=== PATIENT | female | born 1985 | race Caucasian/White ===

== ENCOUNTER 2019-02-07 11:02 | Emergency (ER) | payer BC, OTHER ==
[2019-02-07 11:33] VITALS: BP 125/85; PULSE 104
[2019-02-07] MEDS ORDERED: HYDROmorphone 1 MG/ML Syringe IM ONE (11:56)
[2019-02-07 12:33] LABS: ANION GAP 10.8; CHLORIDE,CL 107 mmol/L (101-111); SODIUM,NA 138 mmol/L (135-145)
[2019-02-07] MEDS ORDERED: Iopamidol 612 MG/ML 100 ML Bottle IVPUSH ONE (13:19)
[2019-02-07] MEDS ORDERED: Ketorolac 30 MG/ML SDV IVPUSH ONE (13:19)
[2019-02-07] MEDS: Sodium Chloride 0.9% 10 ML Syringe FLUSH PRN ×3 (13:40→16:04)
[2019-02-07] MEDS ORDERED: HYDROmorphone 1 MG/ML Syringe IVPUSH ONE (14:34)
[2019-02-07] MEDS ORDERED: Ondansetron 4 MG/2 ML SDV IV ONE (15:53)
--- NOTE | 2019-02-07 15:56 | EDM.PDOC ---
Scribed by Yusra Chun 02/07/19 1203 for Shaila Durant MD ED HPI GENERAL MEDICAL PROBLEM - General Chief Complaint: Abdominal Pain Stated Complaint: ABDOMINAL PAIN Time Seen by Provider: 02/07/19 11:39 Source of Information: Reports: Patient, RN, RN Notes Reviewed History Limitations: Reports: No Limitations - History of Present Illness INITIAL COMMENTS - FREE TEXT/NARRATIVE: Patient presents to ER with complaint of left and right lower quadrant abdominal pain started before going to bed. Rates 10/10, sharp, stabbing, shooting. Patient has lower back pain chronically, This pain radiates to back. At 0400HRS, pain intensified. Took Midol and Cyclobenzaprine at 0700HRS. Last stool was this morning, but was hard and small, last normal BM was 2 days ago. Patient delivered infant via 6 months ago, had tubal ligation at that time. Patient has not has menses since delivery, she is not . States pain is worse than menstrual cramps. No fever, chills or nausea. 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: Other Medication(s) Lower Abdomen Pain Score (Numeric/FACES): 10 - Related Data Allergies Allergy/AdvReac Type Severity Reaction Status Date / Time No Known Allergies Allergy Verified 02/07/19 12:04 Home Meds: Home Meds buPROPion [Wellbutrin] 50 mg PO DAILY 06/05/15 [History] Past Medical History HEENT History: Reports: Impaired Vision YARN SALVAGER History: Reports: , Other (See Below) (Ovarian cysts) LMP (Approximate): Other (See Below) (6 months , no menses since delivery as of 02/07/19.) Endocrine/Metabolic History: Reports: Obesity/BMI 30+ - Past Surgical History Female Surgical History: Reports: Section Social & Family History - Family History Family Medical History: Noncontributory - Living Situation & Occupation Living situation: Reports: , with Family ED ROS GENERAL - Review of Systems Review Of Systems: ROS reveals no pertinent complaints other than HPI. ED EXAM, GI/ABD - Physical Exam Exam: See Below Exam Limited By: No Limitations General Appearance: Alert, No Apparent Distress, Obese Eyes: Left: Normal Appearance (Rt conj. injection), Bilateral: EOMI Nose: Normal Inspection Throat/Mouth: Normal Inspection, Normal Lips, Normal Teeth, Normal Gums, Normal Oropharynx, Normal Voice, No Airway Compromise Head: Atraumatic, Normocephalic Neck: Normal Inspection, Supple, Non-Tender, Full Range of Motion Respiratory/Chest: No Respiratory Distress, Lungs Clear, Normal Breath Sounds, No Accessory Muscle Use, Chest Non-Tender Cardiovascular: Regular Rate, Rhythm, Tachycardia GI/Abdominal Exam: Normal Bowel Sounds, Soft, Non-Tender, No Distention. No: Guarding, Rigid, Rebound (Female) Exam: Deferred Rectal (Female) Exam: Deferred Back Exam: Normal Inspection Extremities: Normal Inspection Neurological: Alert, Oriented, CN II-XII Intact, Normal Cognition, No Motor/ Sensory Deficits Psychiatric: Normal Mood Skin Exam: Warm, Dry, Intact, Normal Color, No Rash Course - Vital Signs Last Recorded V/S: Last Vital Signs Temp 97.5 F 02/07/19 11:32 Pulse 104 H 02/07/19 11:32 Resp 20 02/07/19 11:32 BP 125/85 02/07/19 11:32 Pulse Ox 98 02/07/19 11:32 - Orders/Labs/Meds Orders: Active Orders 24 hr Category Date Time Status Peripheral IV Care [RC] . DIRECTED Care 02/07/19 13:20 Active Abdomen 2V AP Upright Decub [CR] Urgent Exams 02/07/19 11:51 Taken Abdomen Pelvis w Cont [CT] Urgent Exams 02/07/19 13:19 Taken Ondansetron [Zofran] Med 02/07/19 15:53 Once 4 mg IV ONETIME ONE Sodium Chloride 0.9% [Saline Flush] Med 02/07/19 13:19 Active 10 ml FLUSH ASDIRECTED PRN Peripheral IV Insertion Adult [OM.PC] Stat Oth 02/07/19 13:19 Ordered Medication Orders Sodium Chloride (Saline Flush) 10 ml FLUSH ASDIRECTED PRN PRN Reason: Keep Vein Open Last Admin: 02/07/19 14:52 Dose: 10 ml Admin: 02/07/19 13:40 Dose: 10 ml Labs: Laboratory Tests 02/07/19 02/07/1919 Range/Units 11:21 11:21 12:02 WBC 11.2 H (5.0-10.0) 10^3/uL RBC 4.75 (4.2-5.4) 10^6/uL Hgb 13.7 (12.0-16.0) g/dL Hct 40.0 (37.0-47.0) % MCV 84.2 (80-100) fL MCH 28.8 (27.0-34.0) pg MCHC 34.3 (33.0-35.0) g/dL Plt Count 331 (150-450) 10^3/uL Neut % (Auto) 68.4 (42.2-75.2) % Lymph % (Auto) 18.6 L (20.5-50.1) % Ulster % (Auto) 8.4 H (2-8) % Eos % (Auto) 3.9 H (1.0-3.0) % Baso % (Auto) 0.7 (0.0-1.0) % Sodium (135-145) mmol/L Potassium (3.6-5.0) mmol/L Chloride (101-111) mmol/L Carbon Dioxide (21.0-31.0) mmol/L Anion Gap BUN (7-18) mg/dL Creatinine (0.6-1.3) mg/dL Est Cr Clr Drug Dosing mL/min Estimated GFR (MDRD) BUN/Creatinine Ratio Glucose (74-105) mg/dL Calcium (8.4-10.2) mg/dl Total Bilirubin (0.2-1.0) mg/dL AST (10-42) IU/L ALT (10-60) IU/L Alkaline Phosphatase (42-121) IU/L Total Protein (6.7-8.2) g/dl Albumin (3.2-5.5) g/dl Globulin Albumin/Globulin Ratio Amylase (28-100) U/L Lipase (22-51) U/L Urine Color Light yellow (YELLOW) Urine Appearance Clear (CLEAR) Urine pH 7.0 (5.0-9.0) Ur Specific Baggs 1.015 (1.005-1.030) Urine Protein Negative (NEGATIVE) Urine Glucose (UA) Negative (NEGATIVE) Urine Ketones Negative (NEGATIVE) Urine Occult Blood Negative (NEGATIVE) Urine Nitrite Negative (NEGATIVE) Urine Bilirubin Negative (NEGATIVE) Urine Urobilinogen 0.2 (0.2-1.0) mg/dL Ur Leukocyte Esterase Negative (NEGATIVE) Urine HCG, Qual Negative 02/07/19 Range/Units 12:02 WBC (5.0-10.0) 10^3/uL RBC (4.2-5.4) 10^6/uL Hgb (12.0-16.0) g/dL Hct (37.0-47.0) % MCV (80-100) fL MCH (27.0-34.0) pg MCHC (33.0-35.0) g/dL Plt Count (150-450) 10^3/uL Neut % (Auto) (42.2-75.2) % Lymph % (Auto) (20.5-50.1) % Ulster % (Auto) (2-8) % Eos % (Auto) (1.0-3.0) % Baso % (Auto) (0.0-1.0) % Sodium 138 (135-145) mmol/L Potassium 3.8 (3.6-5.0) mmol/L Chloride 107 (101-111) mmol/L Carbon Dioxide 24.0 (21.0-31.0) mmol/L Anion Gap 10.8 BUN 14 (7-18) mg/dL Creatinine 0.8 (0.6-1.3) mg/dL Est Cr Clr Drug Dosing 84.76 mL/min Estimated GFR (MDRD) > 60 BUN/Creatinine Ratio 17.50 Glucose 113 H (74-105) mg/dL Calcium 8.6 (8.4-10.2) mg/dl Total Bilirubin 0.5 (0.2-1.0) mg/dL AST 18 (10-42) IU/L ALT 15 (10-60) IU/L Alkaline Phosphatase 69 (42-121) IU/L Total Protein 6.7 (6.7-8.2) g/dl Albumin 3.7 (3.2-5.5) g/dl Globulin 3.0 Albumin/Globulin Ratio 1.23 Amylase 39 (28-100) U/L Lipase 32 (22-51) U/L Urine Color (YELLOW) Urine Appearance (CLEAR) Urine pH (5.0-9.0) Ur Specific Baggs (1.005-1.030) Urine Protein (NEGATIVE) Urine Glucose (UA) (NEGATIVE) Urine Ketones (NEGATIVE) Urine Occult Blood (NEGATIVE) Urine Nitrite (NEGATIVE) Urine Bilirubin (NEGATIVE) Urine Urobilinogen (0.2-1.0) mg/dL Ur Leukocyte Esterase (NEGATIVE) Urine HCG, Qual Meds: Medications Generic Name Dose Route Start Last Admin Trade Name Freq PRN Reason Stop Dose Admin Sodium Chloride 10 ml 02/07/19 13:19 02/07/19 14:52 Saline Flush FLUSH 10 ml ASDIRECTED PRN Administration Keep Vein Open Discontinued Medications Generic Name Dose Route Start Last Admin Trade Name Freq PRN Reason Stop Dose Admin Hydromorphone HCl 1 mg 02/07/19 11:56 02/07/19 12:12 Dilaudid IM 02/07/19 11:57 1 mg ONETIME ONE Administration Hydromorphone HCl 1 mg 02/07/19 14:34 02/07/19 14:53 Dilaudid IVPUSH 02/07/19 14:35 1 mg ONETIME ONE Administration Iopamidol 100 ml 02/07/19 13:19 02/07/19 13:32 Isovue-300 (61%) IVPUSH 02/07/19 13:20 100 ml ONETIME ONE Administration Ketorolac Tromethamine 30 mg 02/07/19 13:19 02/07/19 13:39 Toradol IVPUSH 02/07/19 13:20 30 mg ONETIME ONE Administration - Radiology Interpretation Free Text/Narrative:: [facility] Final Radiology Report Call: [phone] assistance Online chat: [email or web address] Name: FELIPE VEGA Age: 33Years F Date: 02/07/2019 SSN: -- : 1985 Study: XR ABDOMEN COMPLETE W DECUBITUS &/OR ERECT VIEWS Requesting Physician: SHAILA DURANT Images: 3 Addl Studies: Provided Clinical History: Contrast: Contrast Medium: Contrast Amount: Contrast Method: CONFIDENTIALITY STATEMENT This report is intended only for use by the referring physician, and only in accordance with law. If you received this in error, call [phone]. Page 1 of 1 PROCEDURE INFORMATION: Exam: XR Abdomen, 2 Views Exam date and time: 02/07/2019 12:24 PM Clinical history: 33 years old, female; Other: Llq pain, possible constipation TECHNIQUE: Imaging protocol: XR of the abdomen. Frontal supine and upright views of the abdomen. Views: 2 Views. COMPARISON: No relevant prior studies available. FINDINGS: Gastrointestinal tract: Normal. No bowel dilation. Intraperitoneal space: Normal. No free air. Organs: There are cholecystectomy clips. Bones/joints: Unremarkable for age. IMPRESSION: No acute abnormality. Thank you for allowing us to participate in the care of your patient. Dictated and Authenticated by: Quirino Walker MD 02/07/2019 1:16 PM Central Time ([place] & [place]) - Re-Assessments/Exams Free Text/Narrative Re-Assessment/Exam: 02/07/19 15:50 Dr. Crabtree ([facility]) was consulted, and examined the pt in ER room #[address] a pelvic exam[address] Dr. Crabtree feels the pt may be d/c'd home with close f/u in clinic with her primary [facility] in [place]. Departure - Departure Time of Disposition: 15:53 Disposition: Home, Self-Care 01 Condition: Fair Clinical Impression: Pelvic pain, Cervical os stenosis - Discharge Information *PRESCRIPTION DRUG MONITORING PROGRAM REVIEWED*: No *COPY OF PRESCRIPTION DRUG MONITORING REPORT IN PATIENT ALEX: No Instructions: Pelvic Pain, Female, [id number] Forms: ED Department Discharge Additional Instructions: Follow the discharge instructions given by Dr. Crabtree: Tylenol and/or Ibuprofen as needed for pain (follow directions on bottle/package for dosing and precautions. Call you primary [facility] doctor/clinic tomorrow to schedule a follow up appointment for further evaluation. - My Orders Last 24 Hours: My Active Orders 02/07/19 11:51 Abdomen 2V AP Upright Decub [CR] Urgent 02/07/19 13:19 Abdomen Pelvis w Cont [CT] Urgent Sodium Chloride 0.9% [Saline Flush] 10 ml FLUSH ASDIRECTED PRN Peripheral IV Insertion Adult [OM.PC] Stat 02/07/19 13:20 Peripheral IV Care [RC] . DIRECTED 02/07/19 15:53 Ondansetron [Zofran] 4 mg IV ONETIME ONE - Assessment/Plan Last 24 Hours: My Active Orders 02/07/19 11:51 Abdomen 2V AP Upright Decub [CR] Urgent 02/07/19 13:19 Abdomen Pelvis w Cont [CT] Urgent Sodium Chloride 0.9% [Saline Flush] 10 ml FLUSH ASDIRECTED PRN Peripheral IV Insertion Adult [OM.PC] Stat 02/07/19 13:20 Peripheral IV Care [RC] . DIRECTED 02/07/19 15:53 Ondansetron [Zofran] 4 mg IV ONETIME ONE I have read and agree with the documentation that has been completed regarding this visit. By signing this record, I attest that the documentation was completed in my physical presence and is an accurate record of the encounter.
--- NOTE | 2019-02-08 00:25 | CONS ---
SERVICE DATE: 02/07/2019 HISTORY: Dr. Durant from the emergency room has asked me to see this patient on Friday afternoon, 02/07, for a MARKETING RECRUITER consultation. Dr. Durant has evaluated her and also did obtain CT scan on the patient. She does give a 1-day history of cramping pain that sometimes seems to come and go. The patient states the pain has been of a cramping nature, and when it is most intense, she rates it as a 10/10. She denies any fever or chills. She denies all urinary symptoms. She denies all GI tract symptoms, although she has had some vomiting just a few minutes earlier. The patient has not had a menstrual period since 10/2017. Her pain of a crampy nature, which is described above, is most of the time in the suprapubic area and sometimes it will radiate out to either the left or the right lower quadrant. She did stop approximately 1 month ago. She has used Midol and occasional heating pad at home for the pain. She denies any dyspareunia. She denies knowledge of previous irritable bowel syndrome symptoms or prior diagnosis. PAST OBSTETRICAL HISTORY: Reveals that as mentioned above, she is a 33-year- old, 5, para 4, AB1 patient, who has had 2 prior vaginal deliveries as well as 2 prior sections. With her last repeat section, she did have bilateral tubal ligation by Dr. Bishop Melendez, barbed wire machine operator at [facility]. 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 Her last LEEP was done on 10/[address] Melendez. She is scheduled for her next Pap on 09/2019. She is not able to tell me exactly what her last Pap smear did reveal, but she does have the prior history of HGSIL as mentioned above also. PAST MEDICAL HISTORY: Please see Dr. Durant's medical record from the emergency room of today. The patient also states she has a prior history of psoriasis. PHYSICAL EXAMINATION: Abdomen: Soft and slightly tender to palpation in the suprapubic area. There is negative rebound tenderness. There are no palpable masses. All other quadrants of the abdomen are negative for tenderness. There is negative CVA tenderness bilaterally. Pelvis: She does have some erythematous plaques in the vulvar area with no ulcerations, and she does have 1 small excoriation. She states that this has been diagnosed as psoriasis by her providers previously. Vaginal examination reveals the secretions to be physiologic. The cervix is somewhat asymmetrical and some degree of scarring and adhesions between the posterior cervix and the vaginal fornix as we would expect in somebody who has had 2 prior LEEP procedures. No lesions or suspicious areas are seen on the ectocervix itself. The cervix is nontender to motion. The ectocervix actually appears to have some degree of stenosis at the os. The uterus is felt to be in the mid position, normal-sized and nontender. There are no adnexal masses or tenderness. Her test was negative today, and her CBC is within normal limits. Metabolic panel is normal according to Dr. Durant. Her CT scan that was ordered today does reveal an apparent heterogeneous large cystic lesion in the area of the cervix, possibly hemorrhagic, and it does measure 4.8 x 4.6 cm Also, [place] who read the CT scan this afternoon describes a possible colitis of the transverse colon and describes hepatomegaly as well. Please see that dictated report, which is now in the [employer] computer system at [facility]. The appendix was normal. There was a small amount of fluid in the pelvis. Evidence of prior cholecystectomy is present on the scan. This patient does have an apparent cystic lesion of the cervical area, possibly hemorrhagic, measuring 4.8 cm x 4.6 cm, rule out other lesion. The lesion is not visualized on careful pelvic examination. The patient does not have a barbed wire machine operator in [facility], and she does not have a primary care provider in [facility], and she gets her dermatologic and gynecologic and other care in [place]. She is stable enough to go home this afternoon, and Dr. Durant will be permitting her to be discharged. I have recommended to her that she call [facility] [place], in the near-future and make an appointment to be followed up with Dr. Melendez in the future. I also gave the patient a copy of her CT scan report. I have also encouraged her to feel free to call me if any symptoms seem to persist, change, or worsen Friday afternoon or Friday night tonight while I am still on-call. I will be gone for a week when I leave early tomorrow morning. She will feel free to call me or keep me informed. Also, she would possibly go to the emergency room at [facility] if any symptoms seem to significantly change tonight. As mentioned above, her test was negative and CBC was normal. All of her questions have been answered as best as possible. Another possibility is that she could possibly be having a stenotic cervix from her prior LEEP procedures and possibly be having hematometra from her stenotic cervix. Rule out cervical mass of a different etiology. I also had wanted to do a Pap smear in the emergency room this afternoon, but it was reported to me by the nurses that the supplies and equipment for cervical cytology or Pap smear is not actually available in our emergency room. LIANA /[id number] MTDÁngel
== END 2019-02-07 16:29 | disposition home or self-care (01) ==
LOC: DL.ED 11:02
DX: N88.2 Stricture and stenosis of cervix uteri (principal); E66.9 Obesity, unspecified; Z68.37 Body mass index [BMI] 37.0-37.9, adult
CPT/HCPCS: 36415; 74021; 74177; 80053; 81003; 81025; 82150; 83690; 85025; 96374; 96375; 96376; 99284; J1170; J1885; J2405; Q9967